=== PATIENT | male | born 1940 | race African-American/Black ===

== ENCOUNTER 2019-02-27 21:28 | Inpatient (IN) | payer MEDICARE ==
[~2019-02-27] VITALS: Ht 165.1 cm; Wt 69.9 kg
--- NOTE | 2019-02-27 23:15 | NUR ---
GPS RN-NOTES: ADMISSION NOTES: ADMITTED A 78 YR OLD MALE, FROM [facility], PT IS ON 5150 FOR GD. PER HOLD, PT WAS LIVING IN POOR CONDITIONS, UNABLE TO CARE FOR SELF. PT IS CONFUSED, DISORIENTED, INCOHERENT AT TIMES, PT HAS HISTORY OF WALKING ON THE FREEWAY, PATIENT'S IS UNABLE TO PROVIDE APPROPRIATE CARE AND SUPERVISION. UPON FACE TO FACE ASSESSMENT, PATIENT IS ALERT AND ORIENTED X1-2, CONFUSED, ANXIOUS, DISORIENTED, DISORGANIZED. PT WAS ADVISED OF THE HOLD. PT'S RIGHTS DISCUSSED GUIDE TO PRESCRIPTION MEDICATIONS PROVIDED. PT REFUSED TO SIGN CONSENT FORMS. V/S WNL. NO COMPLAIN OF PAIN AND DISCOMFORT AT THIS TIME, BELONGINGS WERE INVENTORIED AND CHECKED FOR CONTRABAND. PT. IS UNDER THE PSYCHIATRIC CARE OF DR. HUTCHINS ORDERS OBTAINED, AND UNDER THE MEDICAL CARE OF DR. CLEMENTE, SKIN ASSESSMENT DONE. SKIN CLEAR AND INTACT. BED LOCKED AND PLACED ON LOWEST POSITION TO MAINTAIN SAFETY. FALL PRECAUTIONS IMPLEMENTED. ALL NEEDS ATTENDED AND ANTICIPATED. WILL CONTINUE TO MONITOR Q15 MINS. FOR SAFETY AND BEHAVIOR.
[2019-02-27] MEDS ORDERED: MAGNESIUM HYDROXIDE 30 ML UDC PO PRN (23:30)
[2019-02-27] MEDS ORDERED: ZOLPIDEM TARTRATE 5 MG TABLET PO PRN (23:30)
[2019-02-27] MEDS ORDERED: ACETAMINOPHEN 325 MG TABLET PO PRN (23:30)
[2019-02-27] MEDS ORDERED: LORAZEPAM 1 MG TABLET PO PRN (23:30)
[2019-02-27] MEDS ORDERED: MAG HYDROX/AL HYDROX/SIMETH 30 ML UDC PO PRN (23:30)
[2019-02-28 00:21] VITALS: BP 154/89
[2019-02-28] MEDS ORDERED: OXYB5TAB11 PO (00:33)
[2019-02-28] MEDS ORDERED: DONE10TA44 PO (00:33)
[2019-02-28] MEDS ORDERED: AMLO5TAB9 PO (00:33)
[2019-02-28] MEDS ORDERED: MEMA10TA PO (00:33)
--- NOTE | 2019-02-28 06:44 | NUR ---
PAGED DR. CLEMENTE FOR MED RECON. AWAITING TO CALLBACK. WILL ENDORSE TO NEXT SHIFT NURSE FOR FOLLOW UP.
[2019-02-28] MEDS ORDERED: QUET50TA PO (06:54)
[2019-02-28 07:21] LABS: BASOPHILS % (AUTO) 0.6 % (0.0-2.0); EOSINOPHILS % (AUTO) 1.7 % (0.0-6.0); HEMATOCRIT 43 % (39-51); HEMOGLOBIN 14.3 g/dL (13.5-17.5); LYMPHOCYTES % (AUTO) 40.1 % (20.0-44.0); MEAN CORPUSCULAR HGB CONC 33 g/dl (31.0-36.0); MEAN CORPUSCULAR VOLUME 94 fL (80-96); MONOCYTES # (AUTO) 0.6 /CMM (0.1-1.30); MONOCYTES % (AUTO) 11.8 % (2.0-12.0); NEUTROPHILS # (AUTO) 2.3 /CMM (1.8-8.9); NEUTROPHILS % (AUTO) 45.8 % (43.0-81.0); PLATELET COUNT (AUTO) 189 /CMM (150-450); RED BLOOD CELL COUNT(AUTO) 4.62 MIL/uL (4.5-6.0); WHITE BLOOD COUNT (AUTO) 4.9 K/uL (4.3-11.0)
[2019-02-28 07:52] LABS: ALANINE AMINOTRANSFERASE 11 U/L (12-78); ALBUMIN 3.8 g/dL (3.4-5.0); ALKALINE PHOSPHATASE 88 U/L (46-116); ASPARTATE AMINOTRANSFERASE 19 U/L (15-37); BILIRUBIN,TOTAL 0.7 mg/dL (0.2-1.0); CALCIUM, SERUM 9.8 mg/dL (8.5-10.1); CARBON DIOXIDE 23 mmol/L (21-32); CHLORIDE 103 mmol/L (98-107); CHOLESTEROL 256 mg/dL (<200); GLUCOSE 96 mg/dL (74-106); HDL CHOLESTEROL 75 mg/dL (40-60); LDL 165 mg/dL (0-99); POTASSIUM 4.1 mmol/L (3.5-5.1); SODIUM SERUM 137 mmol/L (136-145); TOTAL PROTEIN, SERUM 7.7 g/dL (6.4-8.2); TRIGLYCERIDES 91 mg/dL (30-150); UREA NITROGEN, BLOOD 16 mg/dL (7-18)
[2019-02-28 08:00] VITALS: BP 139/78
[2019-02-28] MEDS: AMLODIPINE BESYLATE 5 MG TABLET PO SCH (08:21)
--- NOTE | 2019-02-28 11:53 | NUR ---
MINO contacted pts Brianna [phone] to discuss discharge plan, treatment plan, and collateral information. stated that she wishes for pt to return home however, per psychiatric hold pt was living in deplorable conditions and is unable to care for him adequately. MINO will discuss discharge plan with psychiatrist and plan for a safe and proper discharge.
--- NOTE | 2019-02-28 14:26 | NUR ---
INITIAL DISCHARGE PLAN: Per Brianna [phone] she wishes for pt to return home. However, per psychiatric hold pt was living in deplorable conditions and is unable to care for him adequately. SW will discuss discharge plan with psychiatrist and plan for a safe and proper discharge.
[2019-02-28 16:00] VITALS: BP 109/69
[2019-02-28] MEDS: MEMANTINE HCL 5 MG TABLET PO SCH (17:00)
[2019-02-28 20:00] VITALS: BP 150/89
[2019-02-28] MEDS: QUETIAPINE FUMARATE 25 MG TABLET PO SCH (21:14)
[2019-02-28] MEDS: OXYBUTYNIN CHLORIDE 5 MG TABLET PO SCH (21:14)
[2019-02-28] MEDS: DONEPEZIL 5 MG TABLET PO SCH (21:14)
[2019-03-01 08:00] VITALS: BP 150/88
[2019-03-01] MEDS: QUETIAPINE FUMARATE 25 MG TABLET PO SCH ×2 (08:00→21:18)
[2019-03-01] MEDS: MEMANTINE HCL 5 MG TABLET PO SCH ×2 (08:00→16:16)
[2019-03-01] MEDS: AMLODIPINE BESYLATE 5 MG TABLET PO SCH (08:01)
[2019-03-01 16:00] VITALS: BP 126/80
[2019-03-01 20:00] VITALS: BP 140/86
[2019-03-01] MEDS: DONEPEZIL 5 MG TABLET PO SCH (21:18)
[2019-03-01] MEDS: OXYBUTYNIN CHLORIDE 5 MG TABLET PO SCH (21:19)
[2019-03-02] MEDS: MEMANTINE HCL 5 MG TABLET PO SCH ×2 (09:11→18:24)
[2019-03-02] MEDS: QUETIAPINE FUMARATE 25 MG TABLET PO SCH ×2 (09:11→21:13)
[2019-03-02] MEDS: AMLODIPINE BESYLATE 5 MG TABLET PO SCH (09:16)
--- NOTE | 2019-03-02 11:49 | NUR ---
RN NOTES ADMINISTERED ATIVAN 1 MG PO PRN FOR ANXIETY V/S TAKEN BP 129/78, P-112. CONTINUED [id number].
[2019-03-02 16:35] VITALS: BP 136/76
[2019-03-02 20:14] VITALS: BP 134/65
[2019-03-02 20:20] VITALS: BP 131/78
[2019-03-02] MEDS: DONEPEZIL 5 MG TABLET PO SCH (21:13)
[2019-03-02] MEDS: OXYBUTYNIN CHLORIDE 5 MG TABLET PO SCH (21:13)
[2019-03-03 08:00] VITALS: BP 113/77
[2019-03-03] MEDS: AMLODIPINE BESYLATE 5 MG TABLET PO SCH (08:16)
[2019-03-03] MEDS: MEMANTINE HCL 5 MG TABLET PO SCH ×2 (08:16→17:42)
[2019-03-03] MEDS: QUETIAPINE FUMARATE 25 MG TABLET PO SCH ×2 (08:16→21:39)
--- NOTE | 2019-03-03 09:00 | NUR ---
SW received a call from APS document control supervisor Vonnie Avila [phone] stating that pt cannot return home as his living conditions are deplorable and pts is unable to care for him. Vonnie stated that [facility] and APS have been involved with pts care for a couple months and that they are working with also to get her assistance. Vonnie requested pt be discharged to a SNF short-term until is able to adequately care for pt and get assistance at home.
--- NOTE | 2019-03-03 10:00 | NUR ---
RN NOTE: URINE COLLECTED FOR UA
[2019-03-03 13:29] LABS: APPEARANCE,URINE Clear (CLEAR); BILIRUBIN,URINE Negative (NEGATIVE); BLOOD, URINE Negative Ery/uL (NEGATIVE); COLOR,URINE Yellow (YELLOW); KETONES,URINE Negative (NEGATIVE); LEUKOCYTE ESTERASE ,URINE Negative (NEGATIVE); NITRITE, URINE Negative (NEGATIVE); PH,URINE 5.5 (5.0-8.0); PROTEIN,URINE Negative (NEGATIVE); UGLUCOSE Negative (NEGATIVE); UROBILINOGEN,URINE 0.2 EU/dL (0.2)
[2019-03-03 16:00] VITALS: BP 131/79
--- NOTE | 2019-03-03 19:02 | NUR ---
RN NOTE: PATIENT'S STATES THAT THE PATIENT WAS TAKING ASPIRIN 81 MG. WILL ENDORSE TO FOLLOWING RN TO INFORM MD.
[2019-03-03 20:00] VITALS: BP 138/88
[2019-03-03] MEDS: DONEPEZIL 5 MG TABLET PO SCH (21:39)
[2019-03-03] MEDS: OXYBUTYNIN CHLORIDE 5 MG TABLET PO SCH (21:39)
[2019-03-04 08:00] VITALS: BP 132/72
[2019-03-04] MEDS: QUETIAPINE FUMARATE 25 MG TABLET PO SCH ×4 (08:38→22:04)
[2019-03-04] MEDS: MEMANTINE HCL 5 MG TABLET PO SCH ×2 (08:38→16:25)
[2019-03-04] MEDS: AMLODIPINE BESYLATE 5 MG TABLET PO SCH (08:39)
--- NOTE | 2019-03-04 15:45 | NUR ---
GROUP NOTE: SW attempted to engage pt in group therapy on this present day discussing poor life choices and how they have affected pts life. However, pt was unable to participate due to pt having Dementia and not being able to engage in conversation.
[2019-03-04 16:00] VITALS: BP 146/79
--- NOTE | 2019-03-04 19:15 | NUR ---
GPS RN NOTE, RECEIVED PATIENT AWAKE AND IN BED, NO S/S OR COMPLAINTS OF PAIN AT THIS TIME. PATIENT IS DISPLAYING NO S/S OF APPARENT DISTRESS AT THIS TIME. PATIENT BREATHING IS UNLABORED WITH EQUAL RISE AND FALL OF THE CHEST. PATIENT IS ALERT AND ORIENTED X 1-2 ON ROOM AIR WITH A SPO2 OF 94 %. PATIENT IS MED COMPLAINT, DISORGANIZED, ANXIOUS, PACING, COOPERATIVE, AND NEEDS REORIENTATION. PATIENT IS REFUSING SKIN ASSESSMENT. PATIENT DENIES SUICIDE AND HOMICIDAL IDEATIONS AT THIS TIME. PATIENT ASSISTED WITH TURNING AND REPOSITIONING Q2HR AND PRN FOR COMFORT AND CIRCULATION. PATIENT HAS NO NEEDS AT THIS TIME. PATIENT EDUCATED ON THE USE OF THE CALL HOWARD. PATIENT BED SIDE RAILS ARE UP X 2 FOR SAFETY, BED IS LOCKED, AND LOW WILL CONTINUE TO MONITOR AND MAINTAIN SAFETY.
[2019-03-04] MEDS: DONEPEZIL 5 MG TABLET PO SCH ×2 (22:00→22:04)
[2019-03-04] MEDS: OXYBUTYNIN CHLORIDE 5 MG TABLET PO SCH ×2 (22:00→22:04)
--- NOTE | 2019-03-04 22:06 | NUR ---
GPS RN NOTE, PATIENT REFUSED ARICEPT 10 MG PO HS, DITOPAN 5 MG PO HS, AND SEROQUEL 50 MG PO HS. OFFERED ARICEPT, DITOPAN, AND SEROQUEL THREE TIMES AND STILL PATIENT REFUSED STATING, " NO I DON'T WANT ANY PILL NOW LEAVE MY ALONE ". EDUCATED PATIENT ON TAKING AND REFUSING AFOREMENTIONED MEDICATION. WILL CONTINUE TO MONITOR THIS PATIENT.
[2019-03-05 08:00] VITALS: BP 159/89
[2019-03-05] MEDS: QUETIAPINE FUMARATE 25 MG TABLET PO SCH ×3 (08:05→21:06)
[2019-03-05] MEDS: AMLODIPINE BESYLATE 5 MG TABLET PO SCH (08:06)
[2019-03-05] MEDS: MEMANTINE HCL 5 MG TABLET PO SCH ×2 (08:06→16:38)
--- NOTE | 2019-03-05 08:32 | NUR ---
MINO faxed SNF referral to Barbra, import coordinator at [facility] Address: [address] [facility], [place] [address] for review.
--- NOTE | 2019-03-05 15:18 | NUR ---
GROUP NOTE: SW attempted to engage pt in group therapy on this present day discussing discharge planning. However, pt was unable to participate due to pt having Dementia and not being able to engage in conversation or follow directions in a group setting.
[2019-03-05 16:00] VITALS: BP 146/82
--- NOTE | 2019-03-05 16:23 | NUR ---
SW received a call from Barbra, admissions clerk at [facility] Address: [address] [facility], [place] [address] stating pt has been available to the facility.
--- NOTE | 2019-03-05 16:24 | NUR ---
MINO contacted APS supervisor hide house Vonnie Avila [phone] and left a voicemail informing her pt has been accepted to [facility] and has a discharge date for Sunday March 10, 2019.
[2019-03-05 20:18] VITALS: BP 144/96
[2019-03-05] MEDS: OXYBUTYNIN CHLORIDE 5 MG TABLET PO SCH (21:06)
[2019-03-05] MEDS: DONEPEZIL 5 MG TABLET PO SCH (21:06)
[2019-03-06 08:00] VITALS: BP 129/66
[2019-03-06] MEDS: MEMANTINE HCL 5 MG TABLET PO SCH ×2 (08:41→17:40)
[2019-03-06] MEDS: QUETIAPINE FUMARATE 25 MG TABLET PO SCH ×3 (08:41→21:42)
[2019-03-06] MEDS: AMLODIPINE BESYLATE 5 MG TABLET PO SCH (08:42)
--- NOTE | 2019-03-06 14:25 | NUR ---
MINO contacted pts Brianna [phone] and left a voicemail for callback.
--- NOTE | 2019-03-06 15:37 | NUR ---
Group Note: SW attempted to engage pt in group therapy on this present day discussing discharge planning. However, pt was unable to participate due to pt having Dementia and not being able to engage in conversation or follow directions in a group setting.
[2019-03-06 16:00] VITALS: BP 140/88
[2019-03-06 20:09] VITALS: BP 140/86
[2019-03-06] MEDS: OXYBUTYNIN CHLORIDE 5 MG TABLET PO SCH (21:42)
[2019-03-06] MEDS: DONEPEZIL 5 MG TABLET PO SCH (21:42)
[2019-03-07 08:00] VITALS: BP 149/86
--- NOTE | 2019-03-07 08:26 | NUR ---
MINO contacted pts Brianna [phone] and left a voicemail for callback.
[2019-03-07] MEDS: QUETIAPINE FUMARATE 25 MG TABLET PO SCH ×2 (08:59→16:20)
[2019-03-07] MEDS: MEMANTINE HCL 5 MG TABLET PO SCH ×2 (08:59→16:20)
[2019-03-07] MEDS: AMLODIPINE BESYLATE 5 MG TABLET PO SCH (09:00)
--- NOTE | 2019-03-07 13:14 | NUR ---
Group Note Goal: Patient will attend group being held today from 10am -10:30 in the activities room and participate and/or actively listen to peers and be respectful. Intervention: SW invited patient to attend group session with peers regarding their support system. SW respected patient�s self-determination and will continue to invite patient to group. Response: Patient declined to participate in today�s group social media strategist session. Plan: Patient will be invited to attend next social media strategist group session held.
[2019-03-07 16:00] VITALS: BP 150/94
--- NOTE | 2019-03-07 19:38 | NUR ---
GPS RN NOTE, RECEIVED PATIENT AWAKE AND IN BED, NO S/S OR COMPLAINTS OF PAIN AT THIS TIME. PATIENT IS DISPLAYING NO S/S OF APPARENT DISTRESS AT THIS TIME. PATIENT BREATHING IS UNLABORED WITH EQUAL RISE AND FALL OF THE CHEST. PATIENT IS ALERT AND ORIENTED X 1-2 ON ROOM AIR WITH A SPO2 OF 94 %. PATIENT IS MED COMPLAINT, DISORGANIZED, ANXIOUS, COOPERATIVE, CONFUSED, AND NEEDS REORIENTATION. PATIENT DENIES SUICIDE AND HOMICIDAL IDEATIONS AT THIS TIME. PATIENT ASSISTED WITH TURNING AND REPOSITIONING Q2HR AND PRN FOR COMFORT AND CIRCULATION. PATIENT HAS NO NEEDS AT THIS TIME. PATIENT EDUCATED ON THE USE OF THE CALL HOWARD. PATIENT BED SIDE RAILS ARE UP X 2 FOR SAFETY, BED IS LOCKED, AND LOW WILL CONTINUE TO MONITOR AND MAINTAIN SAFETY.
[2019-03-07 20:00] VITALS: BP 150/83
[2019-03-07] MEDS: DONEPEZIL 5 MG TABLET PO SCH (21:52)
[2019-03-07] MEDS: QUETIAPINE FUMARATE 100 MG TABLET PO SCH (21:52)
[2019-03-07] MEDS: OXYBUTYNIN CHLORIDE 5 MG TABLET PO SCH (21:52)
--- NOTE | 2019-03-07 21:52 | NUR ---
GPS RN NOTE, PATIENT REFUSED ARICEPT 10 MG PO HS, DITROPAN 5 MG PO HS, AND SEROQUEL 100 MG PO HS. OFFERED ARICEPT, DITROPAN, AND SEROQUEL THREE TIMES AND STILL PATIENT REFUSED STATING, " NO I DON'T WANT ANY PILL NOW LEAVE MY ALONE ". EDUCATED PATIENT ON TAKING AND REFUSING AFOREMENTIONED MEDICATION. WILL CONTINUE TO MONITOR THIS PATIENT.
[2019-03-08 08:00] VITALS: BP 149/90
[2019-03-08] MEDS: QUETIAPINE FUMARATE 25 MG TABLET PO SCH ×2 (08:40→16:26)
[2019-03-08] MEDS: AMLODIPINE BESYLATE 5 MG TABLET PO SCH (08:40)
[2019-03-08] MEDS: MEMANTINE HCL 5 MG TABLET PO SCH ×2 (08:40→16:26)
[2019-03-08 16:14] VITALS: BP 116/71
[2019-03-08 20:00] VITALS: BP 144/81
[2019-03-08] MEDS: DONEPEZIL 5 MG TABLET PO SCH (21:05)
[2019-03-08] MEDS: QUETIAPINE FUMARATE 100 MG TABLET PO SCH (21:06)
[2019-03-08] MEDS: OXYBUTYNIN CHLORIDE 5 MG TABLET PO SCH (21:06)
--- NOTE | 2019-03-08 21:06 | NUR ---
TOOK ALL HIS ROUTINE SCHEDULED NIGHT MEDS/WHOLE PILLS
[2019-03-09 08:00] VITALS: BP 151/85
[2019-03-09] MEDS: MEMANTINE HCL 5 MG TABLET PO SCH ×2 (09:09→17:00)
[2019-03-09] MEDS: QUETIAPINE FUMARATE 25 MG TABLET PO SCH ×2 (09:10→18:56)
[2019-03-09] MEDS: AMLODIPINE BESYLATE 5 MG TABLET PO SCH (09:10)
[2019-03-09 16:00] VITALS: BP 148/88
[2019-03-09 20:19] VITALS: BP 133/66
[2019-03-09] MEDS: QUETIAPINE FUMARATE 100 MG TABLET PO SCH (21:53)
[2019-03-09] MEDS: DONEPEZIL 5 MG TABLET PO SCH (21:53)
[2019-03-09] MEDS: OXYBUTYNIN CHLORIDE 5 MG TABLET PO SCH (21:53)
[2019-03-10 08:00] VITALS: BP 147/90
--- NOTE | 2019-03-10 08:25 | NUR ---
MINO contacted pts Brianna [phone] and left a voicemail informing her pt will be discharged on this present day to [facility].
[2019-03-10 09:02] VITALS: BP 170/60
[2019-03-10] MEDS: MEMANTINE HCL 5 MG TABLET PO SCH (09:02)
[2019-03-10] MEDS: QUETIAPINE FUMARATE 25 MG TABLET PO SCH (09:02)
[2019-03-10] MEDS: AMLODIPINE BESYLATE 5 MG TABLET PO SCH (09:02)
--- NOTE | 2019-03-10 09:24 | NUR ---
DISCHARGE NOTE: Pt will be discharged at 1:00pm via [facility] to [facility] ([facility] [address] [facility] [id number] . Pts Brianna [phone] has been informed via voicemail. Pts mood appears euthymic with congruent affect. Pt denied visual/auditory hallucinations and suicidal/homicidal ideation. Pt will be under the care of Psychiatrist: Dr. Trevino [address] [facility] [address] [address] [phone] and Electrical & Instrumentation Supervisor: Dr. Kaleb Peters Address: [address] [place] [address] [address] [address] Phone: [phone]. The multidisciplinary exitcare form was done, printed, signed, and given to the patient.
--- NOTE | 2019-03-10 10:00 | NUR ---
RN-CO: DR HUTCHINS SEEN AND EXAMINED THE PATIENT WITH ORDERED TO DISCONTINUE HOLD AND DISCHARGE THE PATIENT TODAY, NOTED. DR SALCEDO SEEN AND EXAMINED THE PATIENT , AND MEDICALLY CLEARED HIM FOR DISCHARGE. PATIENT IS CALM AND COOPERATIVE TO CARE. NO AGGRESSION NOTED, DENIED SUICIDAL AND HOMICIDAL IDEATION. DENIED AUDITORY AND VISUAL HALLUCINATION. ALL BELONGINGS WILL BE GIVEN BACK TO HIM. DISCHARGE PAPERS AND EXIT CARE WAS EXPLAINED TO THE PATIENT AND HE VERBALIZED UNDERSTANDING. GLORIA MADE AWARE OF HIS DISCHARGE.
--- NOTE | 2019-03-10 12:30 | NUR ---
Pt has orders to be dc to SNF, [facility], report was given to Lisa Joy RN, and pt will be going in ambulance by 1300, pt is stable, denies any SI bor AH/VH at this time, pt ambulated, alert oriented x2, verbally responsive, no distress.
--- NOTE | 2019-03-10 13:30 | NUR ---
Pt left via ambulance to [facility], alert, oriented x2 verbally responsive, no distress, copy of chart given to ambulance staff, no distress.
--- NOTE | 2019-03-10 16:02 | NUR ---
SW received a call from pts Brianna [phone] requesting discharge information for pt. SW provided her with the address and contact number for [facility],
== END 2019-03-10 13:30 | DRG 885 ==
LOC: GPS 22:50
PROVIDERS: ADMIT Psychiatry & Neurology Psychiatry; ATTEND Nurse Practitioner Acute Care
DX: F29 Unspecified psychosis not due to a substance or known physiological condition (principal); F03.91 Unspecified dementia, unspecified severity, with behavioral disturbance; N32.81 Overactive bladder; F41.9 Anxiety disorder, unspecified; I10 Essential (primary) hypertension
CPT/HCPCS: 36415; 80053-TC; 80061-TC; 81000-TC; 84443-TC; 85025-TC; 87081-TC